=== PATIENT | female | born 1940 | race Caucasian/White ===

== ENCOUNTER 2017-11-23 12:36 | Emergency (ER) | payer MEDICARE, OTHER ==
[~2017-11-23] VITALS: Ht 175.3 cm; Wt 82.0 kg
[~2017-11-23 12:36] MED LIST: ACYC-57 PO; DICL100G25 TP; FLUT12HF3 IH; IBUP-1484 PO; LOSA1TAB22 PO; MELO15TA6 PO
[2017-11-23 12:38] VITALS: BP 133/84
[2017-11-23] MEDS ORDERED: UMEC1DIS INH (13:03)
[2017-11-23] MEDS ORDERED: FLUORESCEIN OPHTHALMIC 1 MG STRIP ONE (13:14)
== END 2017-11-23 14:00 | disposition home or self-care (01) ==
LOC: ED 13:54
DX: L01.01 Non-bullous impetigo (principal); B02.29 Other postherpetic nervous system involvement; B02.9 Zoster without complications; I10 Essential (primary) hypertension
CPT/HCPCS: 99283

== ENCOUNTER 2017-12-25 12:29 | Emergency (ER) | payer MEDICARE ==
[~2017-12-25] VITALS: Ht 172.7 cm; Wt 88.5 kg
[~2017-12-25 12:29] MED LIST changes: +UMEC1DIS INH
[2017-12-25] MEDS ORDERED: SODIUM CHLORIDE FLUSH 10ML SYR IVF ONE (13:00)
[2017-12-25] MEDS ORDERED: ONDANSETRON ODT 4 MG ONE (13:24)
[2017-12-25] MEDS ORDERED: FENTANYL PF 100 MCG/2ML ONE (13:25)
[2017-12-25] MEDS ORDERED: FENTANYL PF 100 MCG/2ML IV ONE (13:30)
[2017-12-25] MEDS ORDERED: ONDANSETRON ODT 4 MG PO ONE (13:30)
[2017-12-25 17:20] VITALS: BP 107/74
== END 2017-12-25 17:35 | disposition home or self-care (01) ==
LOC: ED 15:05
DX: S52.571A Other intraarticular fracture of lower end of right radius, initial encounter for closed fracture (principal); I10 Essential (primary) hypertension; W01.0XXA Fall on same level from slipping, tripping and stumbling without subsequent striking against object, initial encounter; Y93.89 Activity, other specified; Y92.009 Unspecified place in unspecified non-institutional (private) residence as the place of occurrence of the external cause; Y99.8 Other external cause status
CPT/HCPCS: 29125; 73110; 73130; 96374; 99284; J3010; Q0162

== ENCOUNTER 2019-02-20 22:46 | Emergency (ER) | payer MEDICARE, OTHER ==
[~2019-02-20] VITALS: Ht 175.3 cm; Wt 86.6 kg
[~2019-02-20 22:46] MED LIST changes: -IBUP-1484 PO; +IBUP-1902 PO
[2019-02-20 23:16] LABS: BASOPHILS # (AUTO) 0.02 x10^3/uL (0-0.1); BASOPHILS % (AUTO) 0 % (0-1); EOSINOPHILS # (AUTO) 0.08 x10^3/uL (0-0.4); EOSINOPHILS % (AUTO) 1 % (1-7); LYMPHOCYTES # (AUTO) 1.27 x10^3/uL (1-3.4); LYMPHOCYTES % (AUTO) 23 % (22-44); MD NO; MEAN CORPUSCULAR HEMOGLOBIN 30.8 pg (27.0-34.8); MEAN CORPUSCULAR HGB CONC 32.5 g/dL (32.4-35.8); MEAN CORPUSCULAR VOLUME 94.6 fL (80-100); MONOCYTES # (AUTO) 0.52 x10^3/uL (0.2-0.8); MONOCYTES % (AUTO) 9 % (2-9); NEUTROPHILS # (AUTO) 3.64 x10^3/uL (1.8-6.8); NEUTROPHILS % (AUTO) 66 % (42-75); PLATELET COUNT 274 x10^3/uL (130-400); RED BLOOD COUNT 4.74 x10^6/uL (3.82-5.3); RED CELL DISTRIBUTION WIDTH 14.7 % (9.6-15.2)
[2019-02-20 23:23] LABS: ALANINE AMINOTRANSFERASE 24 U/L (12-78); ALBUMIN 3.7 g/dL (3.4-5.0); ANION GAP 6 mmol/L (5-15); CHLORIDE 102 mmol/L (98-107); CREATININE 0.98 mg/dL (0.55-1.02)
--- NOTE | 2019-02-20 23:23 | NUR ---
UA COLLECTED AND TAKEN TO LAB BY ELIUD.
[2019-02-20 23:25] LABS: ALKALINE PHOSPHATASE 84 U/L (45-117); BILIRUBIN,TOTAL 1.6 mg/dL (0.2-1.0); TOTAL PROTEIN 7.1 g/dL (6.4-8.2)
[2019-02-20 23:30] LABS: MICROSCOPIC AUTO
[2019-02-20 23:33] LABS: CULTURE INDICATED? YES
[2019-02-20 23:39] LABS: AMPHETAMINE SCREEN, URINE Positive (Negative); BARBITURATE SCREEN, URINE Negative (Negative); BENZODIAZEPINE SCREEN, URINE Negative (Negative); CANNABINOID SCREEN, URINE Negative (Negative); COCAINE SCREEN, URINE Negative (Negative); METHADONE SCREEN, URINE Negative (Negative); OPIATE SCREEN, URINE Negative (Negative)
--- NOTE | 2019-02-20 23:51 | NUR ---
THE PT HAS NOT DEMONSTRATED ANY HALLUCINATIONS THIS ER STAY. THE PT HAS REMAINED A/O, COOPERATIVE, AND APPROPRIATE.
--- NOTE | 2019-02-20 23:54 | NUR ---
at bedside for reassessment.
--- NOTE | 2019-02-21 00:01 | NUR ---
THE PT AMB 20 FT W/ THE USE OF A CANE. THE PT GAIT IS UNSTEADY, THE PT STATES THIS IS BASELINE FOR THE PT. THE PT C/O L KNEE PAIN. THE PT DTR WAS CALLED TO COME PICK THE PT UP. ERP UPDATED. Addendum: 02/21/19 at 0005 by PSEGER THE PT STATED THAT "MY PLACE IS SMALL I CAN USUALLY HOLD ON TO SOMETHING WHILE I WALK".
--- NOTE | 2019-02-21 00:18 | NUR ---
WAS ABLE TO GET AHOLD OF THE PT DTR ON THE PHONE,ROHIT. 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
[2019-02-21 00:30] VITALS: BP 128/76
--- NOTE | 2019-02-21 01:18 | NUR ---
THE PT WAS D/C TO HOME. THE PT WAS AMB AGAIN FROM BED TO W/C AND ASST OUT TO POV TO ROHIT [facility]. THE PT DENIES QUESTIONS OR NEEDS AT THIS TIME.
== END 2019-02-21 01:19 | disposition home or self-care (01) ==
LOC: ED 23:00
DX: F15.10 Other stimulant abuse, uncomplicated (principal); I10 Essential (primary) hypertension; J45.909 Unspecified asthma, uncomplicated; F17.200 Nicotine dependence, unspecified, uncomplicated; W01.0XXA Fall on same level from slipping, tripping and stumbling without subsequent striking against object, initial encounter; Y93.89 Activity, other specified; Y92.89 Other specified places as the place of occurrence of the external cause; Y99.8 Other external cause status
CPT/HCPCS: 36415; 80053; 80307; 81001; 85025; 87086; 99284

== ENCOUNTER 2020-02-18 12:05 | Emergency (ER) | payer MEDICARE ==
[~2020-02-18] VITALS: Ht 175.3 cm; Wt 91.9 kg
[2020-02-18 12:19] VITALS: BP 146/89
--- NOTE | 2020-02-18 12:53 | NUR ---
PT WITH C/O R FOOT AND LOWER LEG WITH REDNESS. PT DENIES INJURY TO FOOT. CMS IS INTACT. R FOOT WITH NOTED PURPLE/ERRYTHMA DARKER AROUND HER TOES. NO OTHER COMPLAINTS
--- NOTE | 2020-02-18 13:55 | NUR ---
PT TAKEN TO RESTROOM AND BACK TO ROOM. PT WISHING TO STAY IN WHEELCHAIR FOR COMFORT. WC LOCKED AND PT BACK ON MONITOR. PT VERBALIZED UNDERSTANDING TO NOT GET OUT OF CHAIR WITHOUT ASSISTANCE.
== END 2020-02-18 16:01 | disposition home or self-care (01) ==
LOC: ED 14:38
DX: I83.11 Varicose veins of right lower extremity with inflammation (principal); I73.9 Peripheral vascular disease, unspecified; M79.89 Other specified soft tissue disorders; I10 Essential (primary) hypertension; F17.200 Nicotine dependence, unspecified, uncomplicated; J45.909 Unspecified asthma, uncomplicated; Z76.0 Encounter for issue of repeat prescription
CPT/HCPCS: 93922; 99285